=== PATIENT | male | born 1950 | race Caucasian/White ===

== ENCOUNTER 2016-12-28 11:57 | Emergency (ER) | payer MEDICARE, OTHER ==
[~2016-12-28] VITALS: Ht 180.3 cm; Wt 131.5 kg
--- NOTE | 2016-12-28 12:42 | Urgent Treatment Center Report ---
History of Present Issue Date/Time Seen by Provider 12/28/16 1221 Visit Reason Pt arrived:Walked Presenting Problem:PT STATES HANDS AND FEET HAVE BEEN SWELLING IN AFTERNOONS AND EVENINGS. STATES SWELLING BEGINS AROUND 1500. STATES PAIN AND SORENESS TO RIGHT FOOT. STATES PAIN IS BETTER WHEN HE WALKS BUT INCREASES WHEN HE IS RESTING Location if Accident: Onset of symptoms date/time:/ or onset unknown for:MEDICAL HX UNKNOWN Have you (or family members/close friends) recently traveled outside the [place]? N If Yes, where/when: Have you had exposure to infectious disease within the past month? TB? Other? Specify: c/o right foot pain x 3-4 days. Initially noticed in top of right foot but that has resolved and now noticed in heel. Minimal pain at rest, 8/10 aching pain when initially starts walking after sitting but after walking 50-100 feet, pain starts to ease and remains minimal while ambulating "until I sit down again then go to get back up". Denies redness. No known injury. "feels swollen but doesn't look it. Both my legs and hands do. I can just tell. They are tighter than typical." hx of HTN and has been without Tarka x 2 weeks due to a mix up w/ [facility] order pharmacy. Has been in [place] w/ PCP, Dr. Cardenas, who tried ordering local but couldn't be filled because mail order already processed it. In [employer]/ [facility] this morning and should have it at the latest, on Saturday. Still taking coreg, omeprazole and lasix daily. Has noticed edema, worse in evening, since being without Tarka. Denies SOA "other than my normal because I used to smoke but nothing different", no CP or headache, dizziness, muscle cramps. Denies leg pain "just the heel there". No hx of gout. Source patient Exam Limitations no limitations ALLERGIES Coded Allergies: No Known Allergies (09/06/15) History Medical History General CAD? No Angina: No PR: No Hypertension? Yes Hyperlipidemia? No CHF? No DVT? No PE? No COPD? No Asthma? No Anemia? No GERD? Yes Gastric ulcers? No GI Bleed? No Hernia? Yes Thyroid Problems? No Hypothyroidism? No CVA? No Seizures? No Diabetes? No Renal Insuffiency? No UTI? No Stones? No GB Disease: No Nephritic Syndrome? No Asplenia? No Hepatitis? No Sickle Cell Disease? No Arthritis? No Migraines? No Cataracts? No Glaucoma? No MRSA? No HIV? No TB? No Anxiety? No Depression? No Cancer? No Immunization HX DT/Tetanus Unknown Flu 2013-15FSN Pneumonia Received In Past Surgical Hx Previous Surgery?Y GALLBLADDER CARPEL TUNNEL Appendectomy LAP BAND Family History Family HX Diabetes No CAD No Hypertension No Hyperlipidemia No Cancer Yes TB No Social History Smoking Hx Smoker: Former Smoker Tobacco: No Alcohol Alcohol: No Review of Systems All Other Systems Reviewed and Negative Constitutional denies fever Respiratory see HPI Cardiovascular see HPI, denies palpitations Musculoskeletal see HPI Skin denies lesions, denies lumps, denies rash Psychiatric/Neurological denies numbness, denies tingling Physical Exam Vital Signs Vital Signs Date Time Temp Pulse Resp B/P Pulse O2 O2 Flow FiO2 Ox Delivery Rate 12/28 1214 98.5 62 20 159/92 96 General Appearance no apparent distress, obese Respiratory Status No: respiratory distress. Lung Sounds anterior: lungs clear. posterior: lungs clear. bilateral: lungs clear. Cardiovascular regular rate/rhythm, no JVD, no murmur, no obvious edema in hands or feet Peripheral Pulses Pulses normal Yes (pedal) Back gait abnormality (limping, favoring rt foot) Extremities non-tender (rt leg, ankle, foot, toes), normal range of motion (rt ankle, digits), normal inspection Strength 5 Lower Ext (L), 5 Lower Ext (R) Neurologic alert, no motor/sensory deficits Skin intact, normal color, warm/dry Medical Decision Making LABS/Meds/Orders Pt receiving controlled substance in ED? No Results/Orders Orders Procedure Date/time Status FOOT-RT-3 VIEWS 12/28 1233 Active XRAY/CT/US XRAY/CT/US XRAY foot XR interpretation by reviewed by me, discussed w/radiologist (read report) Xray Results normal/NAD Departure Departure Time of Disposition 1353 Disposition DC Home or Self Care(routine) Clinical Impression Primary Impression: Plantar fasciitis of right foot Secondary Impressions: Hypertension Qualifiers: Hypertension type: essential hypertension Qualified Code: I10 - Essential (primary) hypertension Condition STABLE Referrals Ronald CRUZ,[place] (Family) Follow up IMMEDIATELY for new or worsening symptoms OR no noticeable improvement over the next 48-72 hours. Patient Instructions DI for Plantar Fasciitis Additional Instructions Read instructions regarding plantar fasciitis that we discussed. Try the frozen water bottle exercises and gentle stretching Tylenol PRN for pain. Continue to avoid antiinflammatories as you were told No steroids at this time due to elevated BP and you are without Tarka at this time. Offered suggestions to try and get Tarka but same things PCP has already tried. Pt reporting he should have it by Saturday. Try adding insert to shoe for this weekend's Easter activities. May or may not improve. If no better or any worse, be sure to follow up. Discharge Counseling Counseled pt/family regarding diagnosis, test results, medications/RX, home care, follow up needs at [id number]
--- NOTE | 2016-12-28 13:01 | RADIOLOGY REPORT PS360 ---
FOOT-RT-3 VIEWS HISTORY: Right foot pain and swelling w/o BP meds, edema, now heel pain, worse w/ ambulation ORDERING PHYSICIAN: PAOLA BISHOP APRN PATIENT AGE: 66 years COMPARISON: None FINDINGS: No fracture or dislocation. No lytic or blastic change. There is normal mineralization.. There is mild flattening of the head of second metatarsal probably developmental as opposed to avascular necrosis. No sclerotic area evident No significant degenerative change. IMPRESSION: Essentially negative right foot
[2016-12-28 13:59] VITALS: BP 159/92
== END 2016-12-28 14:00 | disposition home or self-care (01) ==
LOC: UTC 11:57
DX: M72.2 Plantar fascial fibromatosis (principal); I10 Essential (primary) hypertension; Z87.891 Personal history of nicotine dependence; K21.9 Gastro-esophageal reflux disease without esophagitis

== ENCOUNTER → 2017-01-17 | Outpatient (CLI) | payer MEDICARE, OTHER | LOC: RT 13:27 | DX: G47.33 Obstructive sleep apnea (adult) (pediatric) (principal); I10 Essential (primary) hypertension; R06.83 Snoring | CPT/HCPCS: G0399-TC ==

== ENCOUNTER → 2017-05-18 | Outpatient (CLI) | payer MEDICARE, OTHER ==
[~2017-05-18] MED LIST: NAPROSYN500 M1 PO
[2017-05-18 09:56] LABS: BILIRUBIN, INDIRECT 0.31 mg/dL (0-0.9)
== END ==
LOC: LAB 08:19
PROVIDERS: Internal Medicine
DX: R53.83 Other fatigue (principal); I25.10 Atherosclerotic heart disease of native coronary artery without angina pectoris; I11.9 Hypertensive heart disease without heart failure